=== PATIENT | female | born 1940 | race American Indian/Alaskan Native ===

== ENCOUNTER 2017-09-28 17:25 | Emergency (ER) | payer MEDICAID, MEDICARE, OTHER ==
[2017-09-28 17:26] VITALS: PULSE 72; BMI 29.4
[2017-09-28 17:47] VITALS: TEMP 98.9
--- NOTE | 2017-09-28 18:00 | ED PDOC ---
Arrival/HPI - General Chief Complaint: Abnormal Labs Time Seen by Provider: 09/28/17 17:32 Historian: Patient, Family (daughter and granddaughter) - History of Present Illness Time/Duration: Prior to Arrival Symptom Onset: Gradual Symptom Course: Worsening Severity Level: Moderate Associated Symptoms (Text): 09/28/17 17:58 Patient complains of chronic dyspnea on exertion which is becoming worse. She was seen on a home visit by Dr. Ladd 3 days ago and had routine blood work drawn. Her troponin was elevated at that time. Dr. Ladd spoke with the patient today and directed her to the emergency department. She denies any chest pain. No cough. No fever or chills. No sputum production. No pedal edema. Past Medical History - Infectious Disease Hx of Infectious Diseases: None - Tetanus Immunization Tetanus Immunization: Unknown - Cardiac Hx Cardiac Disorders: Yes Hx Congestive Heart Failure: Yes Hx Hypertension: No - Pulmonary Hx Respiratory Disorders: Yes Hx Pneumonia: Yes Other/Comment: CHF - Neurological Hx Neurological Disorder: No - HEENT Hx HEENT Disorder: No - Renal Hx Renal Disorder: Yes Hx Kidney Stones: No Hx Renal Failure: Yes - Endocrine/Metabolic Hx Endocrine Disorders: Yes Hx Diabetes Mellitus Type 2: Yes - Hematological/Oncological Hx Blood Disorders: Yes Hx Anemia: Yes - Integumentary Hx Dermatological Disorder: No - Musculoskeletal/Rheumatological Hx Musculoskeletal Disorders: Yes Hx Arthritis: Yes - Gastrointestinal Hx Gastrointestinal Disorders: Yes Hx Crohn's Disease: No Hx Diverticulitis: No Hx Gall Bladder Disease: Yes (gallstones) Hx Pancreatitis: No - Genitourinary/Gynecological Hx Genitourinary Disorders: Yes Hx Urinary Tract Infection: Yes - Psychiatric Hx Psychophysiologic Disorder: Yes Hx Depression: Yes Hx Substance Use: No - Past Surgical History Past Surgical History: No Previous - Surgical History Hx Coronary Stent: Yes - Anesthesia Hx Anesthesia: Yes Hx Anesthesia Reactions: No Hx Malignant Hyperthermia: No - Suicidal Assessment Feels Threatened In Home Enviroment: No Family/Social History - Physician Review Nursing Documentation Reviewed: Yes Family/Social History: Unknown Family HX Smoking Status: Former Smoker Hx Alcohol Use: No Hx Substance Use: No Hx Substance Use Treatment: No Allergies/Home Meds Allergies/Adverse Reactions: Allergies No Known Allergies Allergy (Verified 09/28/17 17:38) Home Medications: Home Meds Medication Instructions Recorded Confirmed Multivitamin 1 tab PO DAILY 10/23/13 02/15/17 Aspirin [Ecotrin] 81 mg PO DAILY 03/02/15 09/28/17 Metolazone 5 mg PO DAILY 05/18/15 09/28/17 Carvedilol [Coreg] 6.25 mg PO BID 02/15/17 09/28/17 Furosemide [Lasix] 40 mg PO DAILY 02/15/17 09/28/17 Losartan Potassium 50 mg PO DAILY 02/15/17 09/28/17 Ferrous Sulfate [Feosol] 325 mg PO DAILY 09/28/17 09/28/17 Review of Systems - Physician Review All systems were reviewed & negative as marked: Yes - Review of Systems Constitutional: Fatigue. absent: Fevers Respiratory: SOB. absent: Cough, Sputum, Wheezing Cardiovascular: absent: Chest Pain, Palpitations, Syncope Gastrointestinal: absent: Abdominal Pain, Nausea, Vomiting Neurological: absent: Headache, Dizziness, Focal Weakness Physical Exam Vital Signs Temp Pulse Resp BP Pulse Ox 09/28/17 17:42 98.9 F 83 16 102/63 99 Temperature: Afebrile Blood Pressure: Normal Pulse: Regular Respiratory Rate: Normal Appearance: Positive for: Well-Appearing, Non-Toxic, Comfortable, Other (mild respiratory distress, ) Pain Distress: None Mental Status: Positive for: Alert and Oriented X 3 - Systems Exam Head: Present: Atraumatic, Normocephalic Pupils: Present: PERRL Extroacular Muscles: Present: EOMI Conjunctiva: Present: Normal Mouth: Present: Moist Mucous Membranes Pharnyx: No: ERYTHEMA, EXUDATE, TONSILS ENLARGED Neck: Present: Normal Range of Motion Respiratory/Chest: Present: Clear to Auscultation, Good Air Exchange, Decreased Breath Sounds. No: Respiratory Distress, Accessory Muscle Use, Wheezes, Rales, Retracting, Rhonchi, Tachypneic Cardiovascular: Present: Regular Rate and Rhythm, Normal S1, S2. No: Murmurs Abdomen: No: Tenderness, Distention, Peritoneal Signs, Rebound, Guarding Back: Present: Normal Inspection Upper Extremity: Present: Normal Inspection. No: Cyanosis, Edema Lower Extremity: Present: Normal Inspection. No: Edema Neurological: Present: GCS=15, CN II-XII Intact, Speech Normal, Motor Func Grossly Intact Skin: Present: Warm, Dry, Normal Color. No: Rashes Psychiatric: Present: Alert, Oriented x 3, Normal Insight, Normal Concentration Medical Decision Making ED Course and Treatment: 09/28/17 18:01 EKG shows normal sinus rhythm rate approximately 85 with a primary AV block and a right bundle branch block and Q waves inferiorly with poor R-wave progression and no acute ST or T-wave changes 09/28/17 18:58 Discussed in detail with Dr. Ladd. Patient's troponin is normal. Her BUN and creatinine are at her usual. Her BNP is lower than usual. She will be discharged home and he will do a follow-up home visit next week. Patient does not want to stay in the hospital. Her pulse oximetry is 100% on room air. She will be discharged home accompanied by family. - Lab Interpretations Lab Results: 09/28/17 18:15 09/28/17 18:15 Lab Results 09/28/17 18:15: Sodium 144, Potassium 4.8, Chloride 106, Carbon Dioxide 26, Anion Gap 18, BUN 72 H, Creatinine 2.2 H, Est GFR ( Amer) 26, Est GFR ( Non-Af Amer) 22, Random Glucose 251 H, Calcium 9.0, Magnesium 1.9, Total Bilirubin 0.4, AST 23, ALT 17, Alkaline Phosphatase 72, Lactate Dehydrogenase 442, Total Creatine Kinase 194, Troponin I 0.02 D, NT-Pro-B Natriuret Pep 1800 H, Total Protein 7.7, Albumin 3.9, Globulin 3.8, Albumin/Globulin Ratio 1.0 L 09/28/17 18:15: PT 12.6 H, INR 1.10 H, APTT 26.7 09/28/17 18:15: WBC 7.8, RBC 4.13, Hgb 9.8 L, Hct 30.5 L, MCV 73.8 L, MCH 23.7 L , MCHC 32.1, RDW 14.4, Plt Count 188, MPV 11.0, Gran % 67.6, Lymph % (Auto) 21.4 L, [place] % (Auto) 9.0 H, Eos % (Auto) 1.7, Baso % (Auto) 0.3, Gran # 5.29, Lymph # (Auto) 1.7, [place] # (Auto) 0.7 H, Eos # (Auto) 0.1, Baso # (Auto) 0.02 - RAD Interpretation Radiology Orders: 09/28/17 17:57 CHEST PORTABLE [RAD] Stat Chest 1 view shows borderline cardiomegaly with mildly increased markings. No infiltrate or effusion. Photo Journalist: ED Physician Disposition/Present on Arrival - Present on Arrival Any Indicators Present on Arrival: No History of DVT/PE: No History of Uncontrolled Diabetes: Yes Urinary Catheter: No History of Decub. Ulcer: No History Surgical Site Infection Following: None - Disposition Have Diagnosis and Disposition been Completed?: Yes Diagnosis: Elevated troponin Disposition: HOME/ ROUTINE Disposition Time: 19:02 Patient Plan: Discharge Condition: GOOD Discharge Instructions (ExitCare): Shortness of Breath (Dyspnea) (DC) Additional Instructions: Home visit with Dr. Ladd next week. Referrals: Pato Ladd DO [Primary Care Provider] - Follow up with primary Forms: [employer] (Portuguese)
[2017-09-28 18:30] LABS: BASO # 0.02 K/mm3 (0.0-2.0); BASO % 0.3 % (0.0-3.0); EOS # 0.1 (0.0-0.7); EOS % 1.7 % (1.5-5.0); GRAN # 5.29 (1.4-6.5); GRAN % 67.6 % (50.0-68.0); HEMOGLOBIN 9.8 g/dL (12.0-16.0); LYMPH # 1.7 (1.2-3.4); LYMPH % 21.4 % (22.0-35.0); MEAN CELL VOLUME 73.8 fl (80.0-105.0); MEAN CORPUSCULAR HEMOGLOBIN 23.7 pg (25.0-35.0); MEAN CORPUSCULAR HGB CONC 32.1 g/dl (31.0-37.0); MONO # 0.7 (0.1-0.6); RBC 4.13 10^6/uL (3.5-6.1); RED CELL DISTRIBUTION WIDTH 14.4 % (11.5-14.5); WHITE BLOOD COUNT 7.8 10^3/ul (4.5-11.0)
[2017-09-28 18:31] LABS: ALBUMIN 3.9 g/dL (3.0-4.8)
[2017-09-28 18:35] LABS: INR 1.1 (0.93-1.08); PARTIAL THROMBOPLASTIN TIME 26.7 Seconds (25.1-36.5); PROTHROMBIN TIME 12.6 SECONDS (9.4-12.5)
[2017-09-28 18:42] LABS: TROPONIN I 0.02 ng/mL
--- NOTE | 2017-09-28 18:50 | CARD ---
APPROVED REPORT EKG Measurement Heart [id number] <Conclusion> Sinus rhythm with 1st degree AV block Left axis deviation Right bundle branch block Inferior infarct, age undetermined Anterolateral infarct, age undetermined Abnormal ECG
[2017-09-28 19:17] VITALS: BP 110/59; PULSE 86; RESP 19; O2SAT 97
--- NOTE | 2017-09-28 19:26 | RAD ---
HISTORY: sob COMPARISON: Portable chest 05/05/2015. FINDINGS: LUNGS: No acute infiltrate identified bilaterally. Linear atelectasis or interval fibrosis in the right base with left base remaining clear. CARDIOVASCULAR: Cardiomediastinal silhouette appears stable. No pneumothorax. No pleural effusion bilaterally. OSSEOUS STRUCTURES: No significant abnormalities. VISUALIZED UPPER ABDOMEN: Normal. OTHER FINDINGS: None. IMPRESSION: Interval linear atelectasis or fibrosis right base. No potential other acute pulmonary findings. Stable cardiomediastinal silhouette.
== END 2017-09-28 19:16 | disposition home or self-care (01) ==
LOC: ED 17:25
DX: R79.89 Other specified abnormal findings of blood chemistry (principal); I11.0 Hypertensive heart disease with heart failure; I50.9 Heart failure, unspecified; E11.9 Type 2 diabetes mellitus without complications; D64.9 Anemia, unspecified; Z87.891 Personal history of nicotine dependence